=== PATIENT | male | born 1940 | race Caucasian/White ===

== ENCOUNTER 2019-03-31 12:28 | Inpatient (IN) | payer MEDICARE ==
[2019-03-31] MEDS: ALBUTEROL 0.5% (NEB) 2.5 MG/0.5 ML AMP INH (12:59)
[2019-03-31] MEDS: SODIUM CHLORIDE 0.9% 1L BAG IV* ×2 (13:05→18:10)
[2019-03-31] MEDS: CEFEPIME 1GM/50 ML (PMX) 50 ML IVPB ×2 (13:06→21:15)
[2019-03-31 13:10] LABS: ADD MAN DIFF? NO
[2019-03-31 13:15] LABS: BASOPHILS % 0.2 % (0.0-2.0); EOSINOPHILS % 0.1 % (0.0-7.0); HEMATOCRIT 39.9 % (42.0-52.0); HEMOGLOBIN 11.9 g/dl (14.0-18.0); LYMPHOCYTES # 0.7 10^3/ul (0.8-2.9); LYMPHOCYTES % 3.4 % (15.0-51.0); MEAN CORPUSCULAR HGB CONC 29.8 g/dl (32.0-37.0); MEAN CORPUSCULAR VOLUME 97.3 fl (82.0-101.0); MEAN PLATELET VOLUME 11.5 fl (7.4-10.4); MONOCYTE # 1.3 10^3/ul (0.3-0.9); MONOCYTES % 6.5 % (0.0-11.0); NEUTROPHIL # 17.8 10^3/ul (1.6-7.5); NEUTROPHILS % 89.2 % (39.0-77.0); PLATELET COUNT 240 10^3/UL (140-415); RED CELL DISTRIBUTION WIDTH 15.9 % (11.5-14.5)
[2019-03-31 13:30] LABS: ADD UMIC YES; UR ASCORBIC ACID 40 mg/dL (NEGATIVE); UR BACTERIA FEW /HPF (NONE SEEN); UR BILIRUBIN (Dip) NEGATIVE (NEGATIVE); UR BLOOD (Dip) NEGATIVE (NEGATIVE); UR CLARITY CLOUDY (CLEAR); UR COLOR AMBER (YELLOW); UR GLUCOSE (Dip) NEGATIVE (NEGATIVE); UR KETONES (Dip) NEGATIVE (NEGATIVE); UR LEUKOCYTE ESTERASE (Dip) TRACE Leu/ul (NEGATIVE); UR MUCUS FEW /HPF (NONE SEEN); UR NITRITE (Dip) NEGATIVE (NEGATIVE); UR RBC 3 /HPF (0-5); UR SPECIFIC GRAVITY (Dip) 1.025 (1.003-1.030); UR SQUAMOUS EPITHELIAL CELL FEW /HPF (FEW); UR TOTAL PROTEIN (Dip) 2+ mg/dl (NEGATIVE); UR UROBILINOGEN (Dip) NEGATIVE (NEGATIVE); UR WBC 25 /HPF (0-5)
[2019-03-31 13:34] LABS: ALANINE AMINOTRANSFERASE 24 IU/L (13-69); ALBUMIN 3.8 g/dl (3.3-4.9); ALBUMIN/GLOBULIN RATIO 0.77; ALKALINE PHOSPHATASE 130 IU/L (42-121); ANION GAP 10 (5-13); ASPARTATE AMINO TRANSFERASE 20 IU/L (15-46); BILIRUBIN,INDIRECT 0.5 mg/dl (0-1.1); BILIRUBIN,TOTAL 0.5 mg/dl (0.2-1.3); BLOOD UREA NITROGEN 37 mg/dl (7-20); CALCIUM 10.3 mg/dl (8.4-10.2); CARBON DIOXIDE 27 mmol/L (21-31); CHLORIDE 109 mmol/L (97-110); CREATININE 1.37 mg/dl (0.61-1.24); GLUCOSE 166 mg/dl (70-220); INR 2.02; LIPASE 18 U/L (23-300); POTASSIUM 4.1 mmol/L (3.5-5.1); PROTIME 22.9 Sec (11.9-14.9); PT RATIO 1.8; SODIUM 146 mmol/L (135-144); TOTAL PROTEIN 8.7 g/dl (6.1-8.1)
[2019-03-31 13:40] LABS: LACTIC ACID 2.2 mmol/L (0.5-2.0)
[2019-03-31 13:46] LABS: TROPONIN-I 0.028 ng/ml (0.000-0.120)
[2019-03-31] MEDS: ACETAMINOPHEN 650MG/20.3ML CUP NGT (14:16)
[2019-03-31] MEDS: LORAZEPAM 2 MG INJ IV (16:15)
[2019-03-31] MEDS ORDERED: VANCOMYCIN IV PER PHARMACY XX (17:00)
[2019-03-31] MEDS ORDERED: ONDANSETRON 4 MG INJ IV (17:00)
[2019-03-31] MEDS ORDERED: NACL 0.9% 3 ML SYG IV (17:00)
[2019-03-31] MEDS: ACETAMINOPHEN 650 MG SUPP PR (18:00)
[2019-03-31] MEDS: FAMOTIDINE 20 MG TAB GTB (18:00)
[2019-03-31 18:38] LABS: ADD MAN DIFF? NO
[2019-03-31 18:44] LABS: HEMATOCRIT 37.1 % (42.0-52.0); HEMOGLOBIN 10.8 g/dl (14.0-18.0); MEAN CORPUSCULAR HEMOGLOBIN 29.7 pg (29.0-33.0); MEAN CORPUSCULAR HGB CONC 29.1 g/dl (32.0-37.0); MEAN CORPUSCULAR VOLUME 101.9 fl (82.0-101.0); MEAN PLATELET VOLUME 12.2 fl (7.4-10.4); PLATELET COUNT 167 10^3/UL (140-415); POSITIVE DIFF @See below; RED BLOOD COUNT 3.64 10^6/ul (4.70-6.10)
[2019-03-31 18:44] LABS: WHITE BLOOD COUNT 20.7 10^3/ul (4.8-10.8)
[2019-03-31 19:08] LABS: ANISOCYTOSIS 1+ (0-0); BAND NEUTROPHILS #M 4.5 10^3/ul (0.0-0.6); BAND NEUTROPHILS % (M) 22 % (0-4); EOSINOPHILS % (M) 1 % (0-7); LYMPHOCYTES % (M) 5 % (15-51); MONOCYTE #M 1.2 10^3/ul (0.3-0.9); MONOCYTES % (M) 6 % (0-11); PLATELET ESTIMATE NORMAL; POLYCHROMASIA 1+ (0-0); SEG NEUT #M 14.6 10^3/ul (1.6-7.5); SEGMENTED NEUTROPHILS (M) % 66 % (39-77); SMUDGE%M 1 % (0-0)
[2019-03-31 19:16] LABS: LACTIC ACID 6.6 mmol/L (0.5-2.0)
[2019-03-31] MEDS: VANCOMYCIN 1.5 GM/NS 250 ML 250 ML IVPB (20:03)
[2019-03-31 20:05] LABS: ANION GAP 11 (5-13); BLOOD UREA NITROGEN 32 mg/dl (7-20); CALCIUM 8.6 mg/dl (8.4-10.2); CARBON DIOXIDE 20 mmol/L (21-31); CHLORIDE 115 mmol/L (97-110); CREATININE 1.18 mg/dl (0.61-1.24); GLUCOSE 204 mg/dl (70-220); POTASSIUM 4.1 mmol/L (3.5-5.1); SODIUM 146 mmol/L (135-144)
[2019-03-31] MEDS ORDERED: AZTREONAM 1 GM/NS (PMX) 50 ML IVPB (21:00)
[2019-03-31] MEDS ORDERED: FERROUS SULFATE 220 MG/5 ML ML GTB (21:00)
[2019-03-31] MEDS: ATORVASTATIN 10 MG TAB GTB (21:15)
[2019-03-31] MEDS: APIXABAN 5 MG TABLET GTB (21:15)
[2019-03-31] MEDS: ASCORBIC ACID 500 MG TAB GTB (21:15)
[2019-03-31] MEDS: FERROUS SULFATE 60 MG/ML 5ML CUP GTB (21:33)
[2019-03-31] MEDS: ALBUTEROL 0.083% (NEB) 2.5 MG/3 ML AMP HHN (21:41)
[2019-03-31] MEDS ORDERED: HEPARIN 5,000 UNIT/1 ML VIAL SC (22:00)
[2019-03-31 22:46] LABS: LACTIC ACID 4.5 mmol/L (0.5-2.0)
[2019-04-01] MEDS: ALBUTEROL 0.083% (NEB) 2.5 MG/3 ML AMP HHN ×2 (04:20→10:37)
[2019-04-01] MEDS: FAMOTIDINE 20 MG TAB GTB ×2 (04:54→17:47)
[2019-04-01 05:57] LABS: HEMATOCRIT 32.3 % (42.0-52.0); HEMOGLOBIN 9.4 g/dl (14.0-18.0); MEAN CORPUSCULAR HEMOGLOBIN 29.1 pg (29.0-33.0); MEAN CORPUSCULAR HGB CONC 29.1 g/dl (32.0-37.0); MEAN PLATELET VOLUME 11.7 fl (7.4-10.4); PLATELET COUNT 154 10^3/UL (140-415); POSITIVE DIFF @See below; RED BLOOD COUNT 3.23 10^6/ul (4.70-6.10); RED CELL DISTRIBUTION WIDTH 16.3 % (11.5-14.5)
[2019-04-01 05:57] LABS: WHITE BLOOD COUNT 17.1 10^3/ul (4.8-10.8)
[2019-04-01 05:59] LABS: ADD MAN DIFF? YES
[2019-04-01 06:24] LABS: HEMOGLOBIN A1C 5.3 % (0-5.9)
[2019-04-01] MEDS: LEVOTHYROXINE 125 MCG TAB GTB (06:25)
[2019-04-01 06:45] LABS: PHOSPHORUS 1.5 mg/dl (2.5-4.9)
[2019-04-01 06:45] LABS: ANION GAP 9 (5-13); BLOOD UREA NITROGEN 28 mg/dl (7-20); CALCIUM 8.8 mg/dl (8.4-10.2); CARBON DIOXIDE 21 mmol/L (21-31); CHLORIDE 118 mmol/L (97-110); CHOLESTEROL 60 mg/dl (100-200); CREATININE 1.04 mg/dl (0.61-1.24); GLUCOSE 227 mg/dl (70-220); HDL CHOLESTEROL 15 mg/dl (31-75); LDL CHOLESTEROL,CALCULATED 21 mg/dl; MAGNESIUM 2.1 mg/dl (1.7-2.5); POTASSIUM 3.9 mmol/L (3.5-5.1); SODIUM 148 mmol/L (135-144); TRIGLYCERIDES 119 mg/dl (0-149)
[2019-04-01 07:02] LABS: LACTIC ACID 2.4 mmol/L (0.5-2.0)
[2019-04-01 09:22] LABS: ANISOCYTOSIS 1+ (0-0); BAND NEUTROPHILS #M 3.9 10^3/ul (0.0-0.6); BAND NEUTROPHILS % (M) 23 % (0-4); EOSINOPHILS % (M) 1 % (0-7); LYMPHOCYTES #M 1.1 10^3/ul (0.8-2.9); LYMPHOCYTES % (M) 7 % (15-51); MONOCYTE #M 0.1 10^3/ul (0.3-0.9); MONOCYTES % (M) 1 % (0-11); PLATELET ESTIMATE NORMAL; POLYCHROMASIA 2+ (0-0); SEG NEUT #M 12.3 10^3/ul (1.6-7.5); SEGMENTED NEUTROPHILS (M) % 68 % (39-77); SMUDGE%M 8 % (0-0)
[2019-04-01] MEDS: FERROUS SULFATE 60 MG/ML 5ML CUP GTB ×2 (09:32→20:25)
[2019-04-01] MEDS: CEFEPIME 1GM/50 ML (PMX) 50 ML IVPB (09:32)
[2019-04-01] MEDS: ZINC SULFATE 220 MG CAP GTB (09:33)
[2019-04-01] MEDS: ASCORBIC ACID 500 MG TAB GTB ×2 (09:33→20:25)
[2019-04-01] MEDS: FINASTERIDE 5 MG TAB GTB (09:33)
[2019-04-01] MEDS: APIXABAN 5 MG TABLET GTB ×2 (09:33→20:25)
[2019-04-01] MEDS: LANSOPRAZOLE 30 MG CAP GTB (09:33)
[2019-04-01] MEDS: POTASSIUM PHOSPHATE 15 MM in SOD CHLORIDE 0.9% 250 ML IVPB (12:38)
[2019-04-01] MEDS: ALBUTEROL/IPRATROPIUM (NEB) 3 ML AMP HHN ×3 (12:54→20:10)
[2019-04-01] MEDS ORDERED: ALBUTEROL/IPRATROPIUM (NEB) 3 ML AMP HHN (13:00)
[2019-04-01 14:35] LABS: LACTIC ACID 1.8 mmol/L (0.5-2.0)
[2019-04-01] MEDS: VANCOMYCIN 1 GM 250 ML IVPB (20:25)
[2019-04-01] MEDS: ATORVASTATIN 10 MG TAB GTB (20:25)
[2019-04-01] MEDS: MEROPENEM 1 GM/50ML(PMX) 50 ML IVPB (21:37)
[2019-04-02] MEDS: ACETYLCYSTEINE 20% 4 ML VIAL NEB ×4 (01:30→20:17)
[2019-04-02] MEDS: ALBUTEROL/IPRATROPIUM (NEB) 3 ML AMP HHN ×6 (01:30→20:07)
[2019-04-02] MEDS: FAMOTIDINE 20 MG TAB GTB ×2 (05:33→18:31)
[2019-04-02 05:58] LABS: ADD MAN DIFF? NO
[2019-04-02 06:14] LABS: ABNORMAL IP MESSAGE 1; BASOPHILS % 0.1 % (0.0-2.0); EOSINOPHILS # 0.1 10^3/ul (0.0-0.5); EOSINOPHILS % 0.6 % (0.0-7.0); HEMATOCRIT 32.2 % (42.0-52.0); HEMOGLOBIN 9.2 g/dl (14.0-18.0); LYMPHOCYTES # 1.1 10^3/ul (0.8-2.9); LYMPHOCYTES % 6.4 % (15.0-51.0); MEAN CORPUSCULAR HEMOGLOBIN 28.5 pg (29.0-33.0); MEAN CORPUSCULAR HGB CONC 28.6 g/dl (32.0-37.0); MEAN CORPUSCULAR VOLUME 99.7 fl (82.0-101.0); MEAN PLATELET VOLUME 11.7 fl (7.4-10.4); MONOCYTE # 1.1 10^3/ul (0.3-0.9); MONOCYTES % 6.3 % (0.0-11.0); NEUTROPHIL # 15.2 10^3/ul (1.6-7.5); NEUTROPHILS % 85.8 % (39.0-77.0); PLATELET COUNT 161 10^3/UL (140-415); POSITIVE DIFF @See below; RED BLOOD COUNT 3.23 10^6/ul (4.70-6.10); RED CELL DISTRIBUTION WIDTH 16.5 % (11.5-14.5)
[2019-04-02 06:14] LABS: WHITE BLOOD COUNT 17.7 10^3/ul (4.8-10.8)
[2019-04-02 06:38] LABS: ANION GAP 5 (5-13); BLOOD UREA NITROGEN 26 mg/dl (7-20); CALCIUM 9.6 mg/dl (8.4-10.2); CARBON DIOXIDE 27 mmol/L (21-31); CHLORIDE 119 mmol/L (97-110); CREATININE 0.96 mg/dl (0.61-1.24); GLUCOSE 224 mg/dl (70-220); POTASSIUM 4.3 mmol/L (3.5-5.1); SODIUM 151 mmol/L (135-144)
[2019-04-02] MEDS: LEVOTHYROXINE 125 MCG TAB GTB (06:42)
[2019-04-02 07:18] LABS: MAGNESIUM 2.3 mg/dl (1.7-2.5)
[2019-04-02 07:18] LABS: PHOSPHORUS 1.8 mg/dl (2.5-4.9)
[2019-04-02] MEDS ORDERED: VANCOMYCIN 1 GM 250 ML IVPB (08:00)
[2019-04-02] MEDS: FERROUS SULFATE 60 MG/ML 5ML CUP GTB ×2 (09:07→21:22)
[2019-04-02] MEDS: MEROPENEM 1 GM/50ML(PMX) 50 ML IVPB ×2 (09:08→21:22)
[2019-04-02] MEDS: ZINC SULFATE 220 MG CAP GTB (09:11)
[2019-04-02] MEDS: LANSOPRAZOLE 30 MG CAP GTB (09:11)
[2019-04-02] MEDS: ASCORBIC ACID 500 MG TAB GTB ×2 (09:12→21:22)
[2019-04-02] MEDS: APIXABAN 5 MG TABLET GTB ×2 (09:12→21:22)
[2019-04-02] MEDS: FINASTERIDE 5 MG TAB GTB (09:12)
[2019-04-02] MEDS: POTASSIUM PHOSPHATE 15 MM in SOD CHLORIDE 0.9% 250 ML IVPB (13:51)
[2019-04-02] MEDS ORDERED: METHYLPREDNISOLONE 125 MG INJ (15:22)
[2019-04-02] MEDS: VALPROIC ACID LIQUID CUP 250 MG/5 ML CUP PO (15:28)
[2019-04-02] MEDS: METHYLPREDNISOLONE 125 MG INJ IV (15:29)
[2019-04-02] MEDS: ALBUTEROL 0.083% (NEB) 2.5 MG/3 ML AMP HHN (16:53)
[2019-04-02] MEDS: VANCOMYCIN 1 GM 250 ML IVPB (20:39)
[2019-04-02] MEDS: ATORVASTATIN 10 MG TAB GTB (21:22)
[2019-04-03] MEDS: ALBUTEROL/IPRATROPIUM (NEB) 3 ML AMP HHN ×5 (01:33→20:42)
[2019-04-03] MEDS: ACETYLCYSTEINE 20% 4 ML VIAL NEB (01:43)
[2019-04-03] MEDS: FAMOTIDINE 20 MG TAB GTB ×2 (05:21→17:23)
[2019-04-03 05:34] LABS: ADD MAN DIFF? NO
[2019-04-03 05:54] LABS: ABNORMAL IP MESSAGE 1; HEMATOCRIT 29.7 % (42.0-52.0); HEMOGLOBIN 8.7 g/dl (14.0-18.0); LYMPHOCYTES # 0.5 10^3/ul (0.8-2.9); LYMPHOCYTES % 5.6 % (15.0-51.0); MEAN CORPUSCULAR HEMOGLOBIN 29.1 pg (29.0-33.0); MEAN CORPUSCULAR HGB CONC 29.3 g/dl (32.0-37.0); MEAN CORPUSCULAR VOLUME 99.3 fl (82.0-101.0); MEAN PLATELET VOLUME 12.5 fl (7.4-10.4); MONOCYTE # 0.2 10^3/ul (0.3-0.9); MONOCYTES % 2.1 % (0.0-11.0); NEUTROPHIL # 7.3 10^3/ul (1.6-7.5); NEUTROPHILS % 91.4 % (39.0-77.0); PLATELET COUNT 162 10^3/UL (140-415); POSITIVE DIFF @See below; RED BLOOD COUNT 2.99 10^6/ul (4.70-6.10); RED CELL DISTRIBUTION WIDTH 16.5 % (11.5-14.5)
[2019-04-03 06:10] LABS: PHOSPHORUS 2.3 mg/dl (2.5-4.9)
[2019-04-03 06:10] LABS: MAGNESIUM 2.4 mg/dl (1.7-2.5)
[2019-04-03 06:24] LABS: ANION GAP 5 (5-13); BLOOD UREA NITROGEN 30 mg/dl (7-20); CALCIUM 9.4 mg/dl (8.4-10.2); CARBON DIOXIDE 27 mmol/L (21-31); CHLORIDE 118 mmol/L (97-110); CREATININE 0.89 mg/dl (0.61-1.24); POTASSIUM 4.9 mmol/L (3.5-5.1); SODIUM 150 mmol/L (135-144)
[2019-04-03 06:49] LABS: GLUCOSE 497 mg/dl (70-220)
[2019-04-03] MEDS: LEVOTHYROXINE 125 MCG TAB GTB (07:02)
[2019-04-03] MEDS ORDERED: GLUCOSE GEL 15 GRAM TUBE BUCCAL (08:00)
[2019-04-03] MEDS ORDERED: DEXTROSE 50% 50 ML SYRINGE IV ×2 (08:00)
[2019-04-03] MEDS ORDERED: GLUCAGON 1 MG INJ IM (08:00)
[2019-04-03] MEDS ORDERED: GLUCOSE GEL 15 GRAM TUBE PO ×2 (08:00)
[2019-04-03] MEDS: ACCU-CHEK XX ×2 (08:18→12:44)
[2019-04-03] MEDS: VALPROIC ACID LIQUID CUP 250 MG/5 ML CUP PO (08:19)
[2019-04-03] MEDS: ASCORBIC ACID 500 MG TAB GTB ×2 (08:19→20:03)
[2019-04-03] MEDS: APIXABAN 5 MG TABLET GTB ×2 (08:19→20:03)
[2019-04-03] MEDS: LANSOPRAZOLE 30 MG CAP GTB (08:19)
[2019-04-03] MEDS: FINASTERIDE 5 MG TAB GTB (08:19)
[2019-04-03] MEDS: FERROUS SULFATE 60 MG/ML 5ML CUP GTB ×2 (08:19→20:03)
[2019-04-03] MEDS: ZINC SULFATE 220 MG CAP GTB (08:19)
[2019-04-03] MEDS: MEROPENEM 1 GM/50ML(PMX) 50 ML IVPB ×2 (08:20→20:02)
[2019-04-03 08:36] LABS: HEMOGLOBIN A1C 5.5 % (0-5.9)
[2019-04-03] MEDS: INSULIN ASPART [NOVOLOG] 3 ML PEN SC ×6 (09:01→17:20)
[2019-04-03 12:43] LABS: GLUCOSE 470 mg/dl (70-220)
[2019-04-03] MEDS: SOD CHLORIDE 0.45% 1,000 ML IV ×3 (12:45→20:03)
[2019-04-03] MEDS: SODIUM CHLORIDE 0.45% 500 ML BAG IV* (12:49)
[2019-04-03 19:42] LABS: VANCOMYCIN,TROUGH 11.3 ug/ml (10.0-20.0)
[2019-04-03] MEDS: ATORVASTATIN 10 MG TAB GTB (20:03)
[2019-04-03] MEDS: INSULIN GLARGINE [LANTus] (100 UNITS/ML) SYG SC (20:15)
[2019-04-03] MEDS: VANCOMYCIN 1 GM 250 ML IVPB (21:03)
[2019-04-04] MEDS: INSULIN ASPART [NOVOLOG] 3 ML PEN SC ×5 (00:15→23:32)
[2019-04-04] MEDS: ALBUTEROL/IPRATROPIUM (NEB) 3 ML AMP HHN ×6 (01:07→20:27)
[2019-04-04] MEDS: SOD CHLORIDE 0.45% 1,000 ML IV ×3 (04:00→16:39)
[2019-04-04 05:11] LABS: ADD MAN DIFF? NO
[2019-04-04 05:13] LABS: HEMATOCRIT 28.9 % (42.0-52.0); HEMOGLOBIN 8.4 g/dl (14.0-18.0); LYMPHOCYTES % 10.2 % (15.0-51.0); MEAN CORPUSCULAR HEMOGLOBIN 28.6 pg (29.0-33.0); MEAN CORPUSCULAR HGB CONC 29.1 g/dl (32.0-37.0); MEAN CORPUSCULAR VOLUME 98.3 fl (82.0-101.0); MEAN PLATELET VOLUME 11.9 fl (7.4-10.4); MONOCYTE # 0.6 10^3/ul (0.3-0.9); MONOCYTES % 5.9 % (0.0-11.0); NEUTROPHIL # 7.8 10^3/ul (1.6-7.5); NEUTROPHILS % 82.7 % (39.0-77.0); PLATELET COUNT 178 10^3/UL (140-415); RED BLOOD COUNT 2.94 10^6/ul (4.70-6.10); RED CELL DISTRIBUTION WIDTH 16.1 % (11.5-14.5)
[2019-04-04 05:13] LABS: WHITE BLOOD COUNT 9.5 10^3/ul (4.8-10.8)
[2019-04-04 05:33] LABS: ANION GAP 5 (5-13); BLOOD UREA NITROGEN 37 mg/dl (7-20); CALCIUM 9.2 mg/dl (8.4-10.2); CARBON DIOXIDE 23 mmol/L (21-31); CHLORIDE 119 mmol/L (97-110); CREATININE 0.89 mg/dl (0.61-1.24); GLUCOSE 230 mg/dl (70-220); SODIUM 147 mmol/L (135-144)
[2019-04-04 05:36] LABS: POTASSIUM 4.3 mmol/L (3.5-5.1)
[2019-04-04 05:40] LABS: MAGNESIUM 2.3 mg/dl (1.7-2.5)
[2019-04-04 05:40] LABS: PHOSPHORUS 2.8 mg/dl (2.5-4.9)
[2019-04-04] MEDS: FAMOTIDINE 20 MG TAB GTB ×2 (05:52→17:19)
[2019-04-04] MEDS: LEVOTHYROXINE 125 MCG TAB GTB (05:57)
[2019-04-04] MEDS: LANSOPRAZOLE (SOLTAB) 30 MG TAB GTB (05:57)
[2019-04-04] MEDS: ZINC SULFATE 220 MG CAP GTB (08:38)
[2019-04-04] MEDS: ASCORBIC ACID 500 MG TAB GTB ×2 (08:38→19:58)
[2019-04-04] MEDS: FERROUS SULFATE 60 MG/ML 5ML CUP GTB ×2 (08:39→19:57)
[2019-04-04] MEDS: FINASTERIDE 5 MG TAB GTB (08:39)
[2019-04-04] MEDS: APIXABAN 5 MG TABLET GTB ×2 (08:39→19:58)
[2019-04-04] MEDS: MEROPENEM 1 GM/50ML(PMX) 50 ML IVPB ×2 (08:39→21:40)
[2019-04-04] MEDS: VALPROIC ACID LIQUID CUP 250 MG/5 ML CUP PO (08:39)
[2019-04-04] MEDS: VANCOMYCIN 1 GM 250 ML IVPB (19:57)
[2019-04-04] MEDS: ATORVASTATIN 10 MG TAB GTB (19:58)
[2019-04-04] MEDS: INSULIN GLARGINE [LANTus] (100 UNITS/ML) SYG SC (20:00)
[2019-04-05] MEDS: SOD CHLORIDE 0.45% 1,000 ML IV ×2 (00:36→17:30)
[2019-04-05] MEDS: ALBUTEROL/IPRATROPIUM (NEB) 3 ML AMP HHN ×6 (01:04→21:45)
[2019-04-05] MEDS: INSULIN ASPART [NOVOLOG] 3 ML PEN SC ×3 (06:21→17:31)
[2019-04-05] MEDS: FAMOTIDINE 20 MG TAB GTB ×2 (06:22→17:28)
[2019-04-05] MEDS: LEVOTHYROXINE 125 MCG TAB GTB (06:23)
[2019-04-05 06:43] LABS: ADD MAN DIFF? NO
[2019-04-05 06:46] LABS: WHITE BLOOD COUNT 11.2 10^3/ul (4.8-10.8)
[2019-04-05 06:46] LABS: ABNORMAL IP MESSAGE 1; BASOPHILS % 0.2 % (0.0-2.0); EOSINOPHILS # 0.1 10^3/ul (0.0-0.5); EOSINOPHILS % 0.5 % (0.0-7.0); HEMATOCRIT 33.9 % (42.0-52.0); HEMOGLOBIN 9.8 g/dl (14.0-18.0); LYMPHOCYTES # 1.5 10^3/ul (0.8-2.9); LYMPHOCYTES % 13.2 % (15.0-51.0); MEAN CORPUSCULAR HEMOGLOBIN 28.5 pg (29.0-33.0); MEAN CORPUSCULAR HGB CONC 28.9 g/dl (32.0-37.0); MEAN CORPUSCULAR VOLUME 98.5 fl (82.0-101.0); MONOCYTE # 0.9 10^3/ul (0.3-0.9); MONOCYTES % 7.9 % (0.0-11.0); NEUTROPHIL # 8.5 10^3/ul (1.6-7.5); NEUTROPHILS % 75.8 % (39.0-77.0); PLATELET COUNT 243 10^3/UL (140-415); POSITIVE DIFF @See below; RED BLOOD COUNT 3.44 10^6/ul (4.70-6.10); RED CELL DISTRIBUTION WIDTH 16.1 % (11.5-14.5)
[2019-04-05 07:08] LABS: ANION GAP 6 (5-13); BLOOD UREA NITROGEN 34 mg/dl (7-20); CALCIUM 9.2 mg/dl (8.4-10.2); CARBON DIOXIDE 27 mmol/L (21-31); CHLORIDE 115 mmol/L (97-110); CREATININE 0.83 mg/dl (0.61-1.24); GLUCOSE 168 mg/dl (70-220); POTASSIUM 4.3 mmol/L (3.5-5.1); SODIUM 148 mmol/L (135-144)
[2019-04-05] MEDS: ASCORBIC ACID 500 MG TAB GTB ×2 (08:43→20:47)
[2019-04-05] MEDS: VALPROIC ACID LIQUID CUP 250 MG/5 ML CUP PO (08:43)
[2019-04-05] MEDS: FERROUS SULFATE 60 MG/ML 5ML CUP GTB ×2 (08:43→20:47)
[2019-04-05] MEDS: ZINC SULFATE 220 MG CAP GTB (08:43)
[2019-04-05] MEDS: APIXABAN 5 MG TABLET GTB ×2 (08:43→20:47)
[2019-04-05] MEDS: LANSOPRAZOLE (SOLTAB) 30 MG TAB GTB (09:58)
[2019-04-05] MEDS: MEROPENEM 1 GM/50ML(PMX) 50 ML IVPB (09:58)
[2019-04-05] MEDS: FINASTERIDE 5 MG TAB GTB (11:52)
[2019-04-05] MEDS: VANCOMYCIN 1 GM 250 ML IVPB (20:21)
[2019-04-05] MEDS: BALSAM PERU/CASTOR OIL 60 GM TUBE TOP (20:43)
[2019-04-05] MEDS: ATORVASTATIN 10 MG TAB GTB (20:47)
[2019-04-05] MEDS: INSULIN GLARGINE [LANTus] (100 UNITS/ML) SYG SC (20:47)
== END 2019-04-05 22:47 | DRG 871 ==
LOC: PP2 04-04 23:36 → E/R 12:28 → 6WM 13:58
DX: A41.9 Sepsis, unspecified organism (principal); R65.21 Severe sepsis with septic shock; J96.91 Respiratory failure, unspecified with hypoxia; J18.9 Pneumonia, unspecified organism; N39.0 Urinary tract infection, site not specified; E87.0 Hyperosmolality and hypernatremia; I69.351 Hemiplegia and hemiparesis following cerebral infarction affecting right dominant side; Z66 Do not resuscitate; E03.9 Hypothyroidism, unspecified; E78.00 Pure hypercholesterolemia, unspecified; D64.9 Anemia, unspecified; D69.6 Thrombocytopenia, unspecified; N40.0 Benign prostatic hyperplasia without lower urinary tract symptoms; E11.9 Type 2 diabetes mellitus without complications; R13.10 Dysphagia, unspecified; Z93.1 Gastrostomy status; H54.62 Unqualified visual loss, left eye, normal vision right eye; Z74.01 Bed confinement status; Z98.2 Presence of cerebrospinal fluid drainage device; Z86.718 Personal history of other venous thrombosis and embolism; Z79.4 Long term (current) use of insulin
CPT/HCPCS: 71045; 80048; 80053; 80061; 80202; 81001; 82947; 82962; 83036; 83605; 83690; 83735; 84100; 84484; 85025; 85610; 85730; 87040-91; 87086; 87400; 93005; 94640; 94644; 94664; 96365; 99285-25